=== PATIENT | female | born 1965 | race Caucasian/White ===

== ENCOUNTER 2019-11-02 19:17 | Emergency (ER) | payer SELFPAY ==
--- NOTE | 2019-11-02 19:26 | PDOC ---
Rapid Medical Evaluation Chief Complaint: Pain Time Seen by Provider: 11/02/19 19:26 Medical Evaluation: 11/02/19 19:26 I performed a brief in-person evaluation of this patient. 54-year-old female with 2 days of nausea, pain "in the whole spine", and epigastric pain. No fevers. Pertinent physical exam findings: Alert, appears uncomfortable. No CVA tenderness. No focal abdominal tenderness. No focal neurologic deficits. Afebrile. I have ordered the following: Abdominal labs UA/culture Patient to proceed to ED for further evaluation.
[2019-11-02 19:39] VITALS: BMI 28.3
[2019-11-02] MEDS ORDERED: ONDANSETRON 4 MG/2 ML VIAL IVPUSH ONE (20:38)
[2019-11-02] MEDS ORDERED: morphine CARPU-JECT 4 MG/1 ML DISP.SYRIN IVPUSH ONE (20:38)
[2019-11-02] MEDS ORDERED: SODIUM CHLORIDE 1,000 ML IV STA (20:39)
[2019-11-02] MEDS ORDERED: morphine SULFATE 4 MG/ML VIAL ONE (20:51)
[2019-11-02] MEDS ORDERED: ONDANSETRON 4 MG/2 ML VIAL ONE (20:51)
--- NOTE | 2019-11-02 21:06 | PDOC ---
History of Present Illness - General Chief Complaint: Pain Stated Complaint: PAIN/NAUSEA Time Seen by Provider: 11/02/19 19:26 History Source: Patient Exam Limitations: No Limitations - History of Present Illness Travel History: No Initial Comments: 11/02/19 21:02 HISTORY OF PRESENT ILLNESS: 54-year-old woman denies medical history presents emergency department for evaluation of intermittent epigastric pain over the past 4 to 5 days. Patient is unable to describe the pain other than it is " very bad." She reports the pain starts in the epigastrium radiating in a bandlike fashion around her body to her mid back. She is unable to identify any aggravating or alleviating factors. Patient has not taken anything for pain prior to arrival in the emergency department. She reports feeling intermittently nauseous but has not vomited. She denies fevers, chills, chest pain, shortness of breath, constipation, diarrhea, hematuria, dysuria, vaginal bleeding or vaginal discharge. No recent travel or sick contacts. PAST MEDICAL HISTORY: Denies past medical history SURGICAL HISTORY: Denies ALLERGIES: No known drug allergies REVIEW OF SYSTEMS General/Constitutional: Denies fever or chills. Denies weakness, weight change. HEENT: Denies change in vision. Denies ear pain or discharge. Denies sore throat. Cardiovascular: Denies chest pain or shortness of breath. Respiratory: Denies cough, wheezing, or hemoptysis. Gastrointestinal: See HPI Genitourinary: Denies dysuria, frequency, or change in urination. Musculoskeletal: Denies joint or muscle swelling or pain. Denies neck or back pain. Skin and breasts: Denies rash or easy bruising. Neurologic: Denies headache, vertigo, loss of consciousness, or loss of sensation. Psychiatric: Denies depression or anxiety. Endocrine: Denies increased thirst. Denies abnormal weight change. Hematologic/Lymphatic: Denies anemia, easy bleeding, or history of blood clots. Allergic/Immunologic: Denies hives or skin allergy. Denies latex allergy. PHYSICAL EXAM General Appearance: Well-appearing, appropriately dressed. No apparent distress , no intoxication. Respiratory/Chest: Lungs CTAB. No shortness of breath, chest tenderness, respiratory distress, accessory muscle use. No crackles, rales, rhonchi, stridor , wheezing, dullness Cardiovascular: RRR. S1, S2. No JVD, murmur, bradycardia, tachycardia. Vascular Pulses: Dorsalis-Pedis (R): 2+, Dorsalis-Pedis (L): 2+ Gastrointestinal/Abdominal: Normal bowel sounds. Abdomen soft, non-distended. Epigastric and right upper quadrant tenderness with guarding . No rebound tenderness. Negative Norris sign. No organomegaly, pulsatile mass, hernia, hepatomegaly, splenomegaly. Lymphatic: No adenopathy, tenderness. Musculoskeletal/Extremities: Normal inspection. FROM of all extremities, normal capillary refill. Pelvis Stable. No CVA tenderness. No tenderness to extremities, pedal edema, swelling, erythema or deformity. Integumentary: Appropriate color, dry, warm. 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 Fully oriented, alert. Appropriate mood/affect. Motor strength 5/5. No appreciable EOM palsy, facial droop or sensory deficit. Past History - Past Medical History Allergies/Adverse Reactions: Allergies Allergy/AdvReac Type Severity Reaction Status Date / Time No Known Allergies Allergy Verified 11/02/19 19:27 Home Medications: Ambulatory Orders Ondansetron [Zofran -] 4 mg PO TID PRN #21 tablet 11/02/19 - Psycho Social/Smoking Cessation Hx Smoking History: Never smoked Hx Alcohol Use: No Drug/Substance Use Hx: No *Physical Exam - Vital Signs Last Vital Signs Temp Pulse Resp BP Pulse Ox 98.5 F 72 18 138/84 98 11/02/19 19:27 11/02/19 19:27 11/02/19 19:27 11/02/19 19:27 11/02/19 19:27 Heart Score/ECG Review - History History: Slightly suspicious - Electrocardiogram EKG: Normal - Age Age: 45-65 - Risk Factors Based on the list above the patient has:: No risk factors known - Troponin Troponin: </= normal limit - Score Heart Score - Total: 1 ED Treatment Course - LABORATORY CBC & Chemistry Diagram: 11/02/19 20:40 11/02/19 20:40 - RADIOLOGY Radiology Studies Ordered: Category Date Time Status ABDOMEN US -LIMITED [US] Stat Ultrasound 11/02/19 20:38 Ordered Medical Decision Making - Medical Decision Making 11/02/19 21:05 A/P: 54-year-old woman with intermittent epigastric pain which radiates to her back for the past 4 to 5 days Epigastric and right upper quadrant tenderness present Negative Norris sign Differential diagnosis includes but is not limited to: ACS, pneumonia, pancreatitis, cholecystitis, choledocholithiasis, gastroenteritis, halo hernia, GERD Labs including cardiac profile and lipase Urinalysis, urine culture Normal saline 1 L IV bolus Right upper quadrant ultrasound Morphine 4 mg IV push no Zofran 4 mg IV push Reassess 11/02/19 22:38 Laboratory Tests 11/02/19 11/02/19 11/02/19 19:30 20:40 20:40 WBC RBC Hgb Hct MCV MCH MCHC RDW Plt Count MPV Absolute Neuts (auto) Neutrophils % Lymphocytes % Monocytes % Eosinophils % Basophils % Nucleated RBC % Sodium 139 Potassium 4.1 Chloride 106 Carbon Dioxide 26 Anion Gap 7 L BUN 13.4 Creatinine 0.8 Est GFR (CKD-EPI)AfAm 97.55 Est GFR (CKD-EPI)NonAf 84.17 Random Glucose 102 Calcium 8.5 Total Bilirubin 0.2 AST 24 ALT 34 Alkaline Phosphatase 74 Creatine Kinase 87 Troponin I < 0.02 Total Protein 8.0 Albumin 4.3 Lipase 144 Urine Color Yellow Urine Appearance Clear Urine pH 5.0 Ur Specific [place] 1.021 Urine Protein Negative Urine Glucose (UA) Negative Urine Ketones Negative Urine Blood 1+ H Urine Nitrite Negative Urine Bilirubin Negative Urine Urobilinogen 0.2 Ur Leukocyte Esterase Negative Urine WBC (Auto) 1 Urine RBC (Auto) 5 Urine Casts (Auto) 2 U Epithel Cells (Auto) 2.9 Urine Bacteria (Auto) 139.7 11/02/19 20:40 WBC 9.2 RBC 4.54 Hgb 14.4 Hct 41.5 MCV 91.3 MCH 31.6 MCHC 34.6 RDW 12.8 Plt Count 276 MPV 7.6 Absolute Neuts (auto) 6.0 Neutrophils % 65.0 Lymphocytes % 25.7 Monocytes % 6.5 Eosinophils % 2.3 Basophils % 0.5 Nucleated RBC % 0 Sodium Potassium Chloride Carbon Dioxide Anion Gap BUN Creatinine Est GFR (CKD-EPI)AfAm Est GFR (CKD-EPI)NonAf Random Glucose Calcium Total Bilirubin AST ALT Alkaline Phosphatase Creatine Kinase Troponin I Total Protein Albumin Lipase Urine Color Urine Appearance Urine pH Ur Specific [place] Urine Protein Urine Glucose (UA) Urine Ketones Urine Blood Urine Nitrite Urine Bilirubin Urine Urobilinogen Ur Leukocyte Esterase Urine WBC (Auto) Urine RBC (Auto) Urine Casts (Auto) U Epithel Cells (Auto) Urine Bacteria (Auto) Right upper quadrants ultrasound is read by Dr. Alexandra: Fatty liver versus hepatocellular disease. Please correlate with liver enzymes. Left hepatic lobe simple cyst measuring 2.6 x 1.6 cm. No gallstones or sonographic evidence of acute cholecystitis are identified. EKG sinus rhythm with rate of 55. Normal intervals noted. Normal axis noted. Single T wave inversion in lead V2. Otherwise unremarkable. Patient is currently pain-free. His liver enzymes are unremarkable and lipase is within normal limits feel it is safe to discharge the patient home to follow- up with GI for continued evaluation of hepatic cyst. I discussed the physical exam findings, ancillary test results and final diagnoses with the patient. I answered all of the patient's questions. The patient was satisfied with the care received and felt comfortable with the discharge plan and treatment plan. The patient will call their primary care physician within 24 hours to arrange follow-up and will return to the Emergency Department with any new, persistent or worsening symptoms. 11/02/19 22:58 Discharge - Discharge Information Problems reviewed: Yes Clinical Impression/Diagnosis: Dyspepsia Condition: Stable Disposition: HOME - Admission No - Additional Discharge Information Prescriptions: Ondansetron [Zofran -] 4 mg PO TID PRN #21 tablet PRN Reason: Nausea And/Or Vomiting - Follow up/Referral Referrals: Eren Friend DO [Staff Physician] - - Patient Discharge Instructions Additional Instructions: Rest, drink lots of fluids: Teas, water, soups Cristina nani, carbonated beverages for the bubbles May try peppermint teas Avoid heavy , spicy or fatty foods until symptoms have resolved Continue [id number] medications for symptomatic relief Tylenol or Motrin for fever and pain May use Zofran-one tablet as needed for nausea. May repeat times one every 8 hours Followup with private physician/GI specialst in one to 2 days as needed Return to emergency department for worsened symptoms, fevers, dehydration alyce Roque muchos lquidos: ts, agua, sopas Cristina nani, bebidas gaseosas para las burbujas. Puede probar ts de menta Evite los alimentos pesados, picantes o grasos hasta que los sntomas se hayan resuelto. Continuar con los medicamentos de venta wang para el alivio sintomtico. Tylenol o Motrin para la fiebre y el dolor. Puede usar la tableta de Zofran-one segn sea necesario para las nuseas. Puede repetir los tiempos roland cada 8 horas Seguimiento con un mdico privado / especialista GI en [place] o 2 quinones segn sea necesario Regrese al departamento de emergencias por sntomas empeorados, fiebre, deshidratacin. - Post Discharge Activity
[2019-11-02 21:22] VITALS: TEMP 98
[2019-11-02 21:24] LABS: BASO % 0.5 % (0-2.0); EOS % 2.3 % (0-4.5); HEMATOCRIT 41.5 % (32.4-45.2); HEMOGLOBIN 14.4 GM/dL (10.7-15.3); LYMPH % 25.7 % (8-40); MCH 31.6 pg (25.7-33.7); MCHC 34.6 g/dl (32.0-36.0); MEAN CELL VOLUME 91.3 fl (80-96); MEAN PLT VOLUME 7.6 fl (7.5-11.1); MONO % 6.5 % (3.8-10.2); PLATELET COUNT 276 K/MM3 (134-434); RBC 4.54 M/mm3 (3.60-5.2); RDW 12.8 % (11.6-15.6); WHITE BLOOD COUNT 9.2 K/mm3 (4.0-10.0)
[2019-11-02 21:31] LABS: EPI CELLS 2.9 /HPF (0-5/HPF); HYALINE CASTS 2 /lpf (0-8); URINE APPEARANCE CLEAR; URINE BACTERIA 139.7 /hpf (NEGATIVE); URINE BILIRUBIN NEGATIVE (NEGATIVE); URINE COLOR YELLOW; URINE GLUCOSE (UA) NEGATIVE (NEGATIVE); URINE KETONE NEGATIVE (NEGATIVE); URINE LEUK ESTERASE NEGATIVE (NEGATIVE); URINE NITRITE NEGATIVE (NEGATIVE); URINE PROTEIN NEGATIVE (NEGATIVE); URINE RBC 5 /hpf (0-4); URINE UROBILINOGEN 0.2 mg/dL (0.2-1.0); URINE WBC 1 /hpf (0-5)
[2019-11-02 21:32] LABS: ALBUMIN 4.3 g/dl (3.4-5.0); BILIRUBIN,TOTAL 0.2 mg/dL (0.2-1); BLOOD UREA NITROGEN 13.4 mg/dL (7-18); CALCIUM 8.5 mg/dL (8.5-10.1); CREATININE 0.8 mg/dL (0.55-1.3); POTASSIUM 4.1 mmol/L (3.5-5.1)
[2019-11-02] MEDS ORDERED: FAMOTIDINE 10 MG TABLET PO ONE (21:34)
[2019-11-02] MEDS ORDERED: MAG HYDROX/AL HYDROX/SIMETH 30 ML UNIT-DOSE CUP PO ONE (21:34)
[2019-11-02] MEDS ORDERED: FAMOTIDINE 10 MG TABLET ONE (21:47)
[2019-11-02] MEDS ORDERED: MAG HYDROX/AL HYDROX/SIMETH 30 ML UNIT-DOSE CUP ONE (21:47)
[2019-11-02 23:39] VITALS: BP 123/67; PULSE 64
--- NOTE | 2019-11-03 09:17 | EKG ---
Test Reason : Blood Pressure : / mmHG Vent. Rate : 055 BPM Atrial Rate : 055 BPM P-R Int : 170 ms QRS Dur : 090 ms QT Int : 460 ms P-R-T Axes : 049 055 040 degrees QTc Int : 440 ms SINUS BRADYCARDIA OTHERWISE NORMAL ECG NO PREVIOUS ECGS AVAILABLE Confirmed by Zay Elam MD ([id number]) on 11/03/2019 9:16:57 AM Referred By: Confirmed By:Zay Elam MD
== END 2019-11-02 23:25 | disposition home or self-care (01) ==
LOC: JER 19:17
PROC: 3E033NZ Introduction of Analgesics, Hypnotics, Sedatives into Peripheral Vein, Percutaneous Approach (ICD-10-PCS; principal; 2019-11-02)
PROC: 3E033GC Introduction of Other Therapeutic Substance into Peripheral Vein, Percutaneous Approach (ICD-10-PCS; 2019-11-02)
DX: R10.13 Epigastric pain (principal)
CPT/HCPCS: 36415; 76705-TC; 80053; 81003; 82550; 83690; 84484; 85025; 87086; 93005; 93010; 99285-25; J7030

== ENCOUNTER 2022-08-01 03:51 | Inpatient (IN) | payer SELFPAY ==
[2022-08-01] MEDS ORDERED: MAG HYDROX/AL HYDROX/SIMETH -MYLANTA- ORAL SUSPENSION PO ONE (04:01)
[2022-08-01] MEDS ORDERED: FAMOTIDINE 20 MG TABLET PO ONE (04:01)
[2022-08-01] MEDS ORDERED: ONDANSETRON *ODT* 4 MG TABLET SL ONE (04:12)
[2022-08-01] MEDS ORDERED: SODIUM CHLORIDE 0.9% 500 ML INFUS.BAG IV ONE (04:15)
[2022-08-01] MEDS ORDERED: ACETAMINOPHEN 1000 MG/100 ML BAG IVPB ONE (04:15)
[2022-08-01] MEDS ORDERED: FAMOTIDINE 20 MG TABLET ONE (04:35)
[2022-08-01] MEDS ORDERED: ONDANSETRON *ODT* 4 MG TABLET ONE (04:36)
[2022-08-01] MEDS ORDERED: ACETAMINOPHEN INJECTION 100 ML IVPB ONE (04:36)
[2022-08-01 05:40] LABS: BASO % 0.5 % (0-2.0); EOS % 0.5 % (0-4.5); HEMOGLOBIN 14.7 GM/dL (10.7-15.3); LYMPH % 13.1 % (8-40); MCH 30.3 pg (25.7-33.7); MCHC 34.1 g/dl (32.0-36.0); MEAN CELL VOLUME 88.8 fl (80-96); MEAN PLT VOLUME 8.1 fl (7.5-11.1); MONO % 3.9 % (3.8-10.2); PLATELET COUNT 292 10^3/uL (134-434); RBC 4.84 M/mm3 (3.60-5.2); RDW 13.3 % (11.6-15.6); WHITE BLOOD COUNT 9.8 K/mm3 (4.0-10.0)
[2022-08-01 05:43] LABS: EPI CELLS 12 /uL (0-25.1); HYALINE CASTS 0 /uL (0-3.1); URINE APPEARANCE CLEAR; URINE BACTERIA 38 /uL (0-1359); URINE BILIRUBIN NEGATIVE (NEGATIVE); URINE COLOR YELLOW; URINE GLUCOSE (UA) NEGATIVE (NEGATIVE); URINE KETONE NEGATIVE (NEGATIVE); URINE LEUK ESTERASE NEGATIVE (NEGATIVE); URINE NITRITE NEGATIVE (NEGATIVE); URINE PROTEIN NEGATIVE (NEGATIVE); URINE RBC 62 /uL (0-23.9); URINE UROBILINOGEN 0.2 mg/dL (0.2-1.0); URINE WBC 5 /uL (0-25.8)
[2022-08-01 05:55] LABS: BLOOD UREA NITROGEN 23.4 mg/dL (7-18); CALCIUM 9.2 mg/dL (8.5-10.1)
[2022-08-01 05:56] LABS: ALBUMIN 4.7 g/dl (3.4-5.0); MAGNESIUM 2.7 mg/dL (1.8-2.4)
[2022-08-01 05:59] LABS: CREATININE 0.8 mg/dL (0.55-1.3)
[2022-08-01 06:00] LABS: BILIRUBIN,TOTAL 0.6 mg/dL (0.2-1); TOT PROT 8.6 g/dl (6.4-8.2)
[2022-08-01] MEDS ORDERED: KETOROLAC TROMETHAMINE 15 MG/ML VIAL IVPUSH ONE (06:10)
[2022-08-01] MEDS ORDERED: KETOROLAC TROMETHAMINE 15 MG/ML VIAL ONE (06:14)
[2022-08-01] MEDS ORDERED: morphine CARPU-JECT 4 MG/1 ML DISP.SYRIN IVPUSH ONE (11:53)
[2022-08-01] MEDS ORDERED: morphine SULFATE 4 MG/ML VIAL ONE (12:05)
[2022-08-01] MEDS: SODIUM CHLORIDE 1,000 ML IV SCH (12:35)
[2022-08-01] MEDS ORDERED: ACETAMINOPHEN 325 MG TABLET (FP) PO PRN (12:35)
[2022-08-01] MEDS ORDERED: BISACODYL 5 MG TABLET.DR (FP) PO PRN (13:12)
[2022-08-01] MEDS ORDERED: ONDANSETRON 4 MG/2 ML VIAL IVPUSH PRN (13:13)
[2022-08-01] MEDS: KETOROLAC TROMETHAMINE 15 MG/ML VIAL IVPUSH PRN (15:26)
[2022-08-01 17:43] VITALS: BMI 27.8
[2022-08-02] MEDS: KETOROLAC TROMETHAMINE 15 MG/ML VIAL IVPUSH PRN (06:46)
[2022-08-02] MEDS ORDERED: ROCURONIUM BROMIDE 50 MG/5 ML SYRINGE ONE (11:09)
[2022-08-02] MEDS ORDERED: PROPOFOL 20 ML ONE (11:09)
[2022-08-02] MEDS ORDERED: LIDOCAINE HCL/PF 2% SDV 5ML VIAL ONE (11:10)
[2022-08-02] MEDS ORDERED: MIDAZOLAM HCL 2 MG/2 ML SINGLE DOSE VIAL ONE (11:10)
[2022-08-02] MEDS ORDERED: BUPIVACAINE HCL/PF 0.5% (5MG/ML) 10 ML VIAL ONE (11:11)
[2022-08-02] MEDS ORDERED: ACETAMINOPHEN INJECTION 100 ML IVPB ONE (11:18)
[2022-08-02] MEDS ORDERED: DEXAMETHASONE SOD PHOSPHATE 4 MG/1 ML VIAL ONE (11:53)
[2022-08-02] MEDS ORDERED: ONDANSETRON 4 MG/2 ML VIAL ONE (11:53)
[2022-08-02] MEDS ORDERED: ceFAZolin SODIUM 1 GM VIAL ONE (11:57)
[2022-08-02] MEDS ORDERED: ceFAZolin SODIUM 1 GM VIAL IVPB ONE ×2 (11:58)
[2022-08-02] MEDS ORDERED: LACTATED RINGERS SOLUTION 1,000 ML IV SCH ×2 (13:00→15:26)
[2022-08-02] MEDS ORDERED: PANTOPRAZOLE SODIUM 40 MG VIAL IVPUSH ONE ×2 (13:09→15:26)
[2022-08-02] MEDS ORDERED: NEOSTIGMINE METHYLSULFATE 0.5 MG/ML - 10 ML MDV ONE (13:11)
[2022-08-02] MEDS ORDERED: GLYCOPYRROLATE 0.2 MG/1 ML VIAL ONE (13:11)
[2022-08-02] MEDS ORDERED: KETOROLAC TROMETHAMINE 30 MG/1 ML VIAL ONE (13:13)
[2022-08-02] MEDS ORDERED: BUPIVACAINE HCL/PF 0.5% (5MG/ML) 10 ML VIAL IJ ONE ×2 (13:25)
[2022-08-02] MEDS ORDERED: FENTANYL CITRATE/PF 50 MCG/ML VIAL ONE ×2 (14:41→15:28)
[2022-08-02] MEDS ORDERED: BISACODYL 5 MG TABLET.DR (FP) PO PRN (15:26)
[2022-08-02] MEDS ORDERED: KETOROLAC TROMETHAMINE 15 MG/ML VIAL IVPUSH PRN (15:26)
[2022-08-02] MEDS ORDERED: ONDANSETRON 4 MG/2 ML VIAL IVPUSH PRN (15:26)
[2022-08-02] MEDS ORDERED: ACETAMINOPHEN 325 MG TABLET (FP) PO PRN (15:26)
[2022-08-02] MEDS ORDERED: SODIUM CHLORIDE 1,000 ML IV SCH (15:26)
[2022-08-02] MEDS: SODIUM CHLORIDE 1,000 ML IV SCH (17:08)
[2022-08-03 01:23] VITALS: RESP 18
[2022-08-03 09:32] LABS: BASO % 0.4 % (0-2.0); EOS % 0.5 % (0-4.5); HEMATOCRIT 35.1 % (32.4-45.2); HEMOGLOBIN 12.2 GM/dL (10.7-15.3); LYMPH % 17.2 % (8-40); MCH 31.4 pg (25.7-33.7); MCHC 34.8 g/dl (32.0-36.0); MEAN CELL VOLUME 90.2 fl (80-96); MEAN PLT VOLUME 7.6 fl (7.5-11.1); MONO % 7.1 % (3.8-10.2); NEUT % 74.8 % (42.8-82.8); PLATELET COUNT 230 10^3/uL (134-434); RBC 3.89 M/mm3 (3.60-5.2); WHITE BLOOD COUNT 8.7 K/mm3 (4.0-10.0)
[2022-08-03] MEDS ORDERED: KETOROLAC TROMETHAMINE 30 MG/1 ML VIAL IVPUSH ONE (10:19)
[2022-08-03 10:31] LABS: BLOOD UREA NITROGEN 13.5 mg/dL (7-18); CALCIUM 8.1 mg/dL (8.5-10.1)
[2022-08-03 10:34] LABS: CREATININE 0.7 mg/dL (0.55-1.3)
[2022-08-03 10:35] LABS: BILIRUBIN,TOTAL 1.9 mg/dL (0.2-1)
[2022-08-03 10:54] LABS: ALBUMIN 3.3 g/dl (3.4-5.0); TOT PROT 6.4 g/dl (6.4-8.2)
[2022-08-03 13:07] VITALS: BP 122/65; PULSE 70; TEMP 98.7
== END 2022-08-03 13:18 | disposition home or self-care (01) | DRG 263 ==
LOC: JER 03:51 → INTOOBSV 11:32 → OBSVTOIN 11:32 → JERBED 11:32 → J8W 13:26
PROVIDERS: ADMIT Internal Medicine; ATTEND Nurse Practitioner Acute Care
PROC: 0FT44ZZ Resection of Gallbladder, Percutaneous Endoscopic Approach (ICD-10-PCS; principal; 2022-08-02 12:00)
DX: K80.00 Calculus of gallbladder with acute cholecystitis without obstruction (principal); K76.89 Other specified diseases of liver; J98.11 Atelectasis; D25.9 Leiomyoma of uterus, unspecified; K76.0 Fatty (change of) liver, not elsewhere classified; R31.9 Hematuria, unspecified; R91.8 Other nonspecific abnormal finding of lung field
CPT/HCPCS: 0241U-QW; 36415; 74176-TC; 76705-TC; 80053; 81003; 83690; 83735; 84484; 85025; 87086; 88304-TC; 93005; 93010; 94010; 94760; 99285-25; Q0162